=== PATIENT | female | born 1990 | race Caucasian/White ===

== ENCOUNTER → 2016-11-17 | Outpatient (REF) ==
[~2016-11-17] MED LIST: IRON1 CHI; NO HOME MEDICATIONS; NUVARING1 ICR VG; PRENATAL1 TA1 PO
== END ==
LOC: WSOH 14:23
DX: Z00.00 Encounter for general adult medical examination without abnormal findings (principal)

== ENCOUNTER → 2016-11-22 | Outpatient (REF) | LOC: WSOH 12:02 | DX: Z02.89 Encounter for other administrative examinations (principal) ==

== ENCOUNTER → 2016-12-18 | Outpatient (REF) | LOC: WSOH 12:52 | DX: Z23 Encounter for immunization (principal) ==

== ENCOUNTER 2017-06-05 11:23 | Emergency (ER) | payer BC ==
[~2017-06-05] VITALS: Ht 152.4 cm; Wt 66.8 kg
[2017-06-05 11:41] VITALS: TEMP 98.9
[2017-06-05 12:12] LABS: BASO % 0.2 % (0.0-2.0); EOS # 0.2 (0.0-0.7); EOS % 2.2 % (0-4.0); GRAN # 6.3 (1.4-6.5); GRAN % 63.9 % (42.2-75.2); HEMATOCRIT 39.1 % (37.0-47.0); HEMOGLOBIN 13.6 g/dl (12.5-16.0); LYMPH # 2.6 (1.2-3.4); LYMPH % 26.8 % (20.0-51.0); MEAN CELL VOLUME 90 fl (80.0-100.0); MEAN CORPUSCULAR HEMOGLOBIN 31 pg (27.0-31.0); MEAN CORPUSCULAR HGB CONC 35 g/dl (33.0-37.0); MEAN PLATELET VOLUME 9.1 fl (7.4-10.4); MONO # 0.7 (0.1-0.6); MONO % 6.7 % (1.7-9.3); PLATELET COUNT 264 K/mm3 (130-400); RED BLOOD COUNT 4.36 M/mm3 (4.10-5.30); REDCELL DISTRIBUTION WIDTH-CV 12.2 % (11.5-14.5)
[2017-06-05 12:21] LABS: ALBUMIN 4.5 gm/dL (3.5-5.0); BILIRUBIN,TOTAL 0.4 mg/dL (0.0-1.0); CREATININE, serum 0.6 mg/dL (0.52-1.25); POTASSIUM 4.1 mmol/L (3.4-5.0)
[2017-06-05] MEDS ORDERED: ZYRTEC5 MG PO (12:24)
[2017-06-05] MEDS ORDERED: PRENATAL 191 CTB PO (12:24)
[2017-06-05 14:37] LABS: COLLECTION METHOD CLEAN CATCH
[2017-06-05 15:01] LABS: MUCOUS Present /lpf; PH 5 (5-8); SQUAMOUS EPITHELIAL None Seen /hpf; URINE APPEARANCE Clear; URINE BACTERIA None Seen /hpf; URINE BILIRUBIN Negative (NEGATIVE); URINE BLOOD Negative (NEGATIVE); URINE COLOR Yellow; URINE GLUCOSE Negative (NEGATIVE); URINE KETONE 1+ (NEGATIVE); URINE LEUKOCYTE ESTERASE Negative (NEGATIVE); URINE NITRATE Negative (NEGATIVE); URINE PROTEIN(semi-quant) Negative (NEGATIVE); URINE RBC None Seen /hpf; URINE UROBILINOGEN Negative (NEGATIVE)
[2017-06-05 15:46] VITALS: BP 117/72; PULSE 91
== END 2017-06-05 15:42 | disposition home or self-care (01) ==
LOC: COL.ER 11:23
PROVIDERS: Nurse Practitioner
DX: O26.891 Other specified pregnancy related conditions, first trimester (principal); R55 Syncope and collapse; Z3A.12 12 weeks gestation of pregnancy
CPT/HCPCS: J7030

== ENCOUNTER 2017-12-14 06:58 | Inpatient (IN) | payer BC ==
[2017-12-14] VITALS (60 sets, daily range): BP systolic 117–168; BP diastolic 62–105; PULSE 78–127; TEMP 97.7–98.7
[~2017-12-14] VITALS: Ht 152.4 cm; Wt 76.7 kg
[~2017-12-14 06:58] MED LIST changes: +PRENATAL 191 CTB PO; +ZYRTEC5 MG PO
[2017-12-14] MEDS ORDERED: SLOW-MAG 6464 MG/TAB PO (07:44)
[2017-12-14 08:04] LABS: BASO % 0.1 % (0.0-2.0); EOS # 0.3 (0.0-0.7); GRAN # 4.9 (1.4-6.5); GRAN % 57.2 % (42.2-75.2); HEMOGLOBIN 10.7 g/dl (12.5-16.0); LYMPH # 2.3 (1.2-3.4); LYMPH % 26.4 % (20.0-51.0); MEAN CELL VOLUME 92 fl (80.0-100.0); MEAN CORPUSCULAR HEMOGLOBIN 31 pg (27.0-31.0); MEAN CORPUSCULAR HGB CONC 34 g/dl (33.0-37.0); MEAN PLATELET VOLUME 9.4 fl (7.4-10.4); MONO % 11.6 % (1.7-9.3); PLATELET COUNT 159 K/mm3 (130-400); RED BLOOD COUNT 3.41 M/mm3 (4.10-5.30); REDCELL DISTRIBUTION WIDTH-CV 14.2 % (11.5-14.5)
[2017-12-14 08:05] LABS: HEMATOCRIT 31.3 % (37.0-47.0)
[2017-12-14 09:49] LABS: COLLECTION METHOD CLEAN CATCH
[2017-12-14 09:57] LABS: PH 7 (5-8); URINE APPEARANCE Clear; URINE BACTERIA Rare /hpf; URINE BILIRUBIN Negative (NEGATIVE); URINE BLOOD Negative (NEGATIVE); URINE COLOR Straw; URINE GLUCOSE Negative (NEGATIVE); URINE KETONE Negative (NEGATIVE); URINE LEUKOCYTE ESTERASE 1+ (NEGATIVE); URINE NITRATE Negative (NEGATIVE); URINE PROTEIN(semi-quant) Negative (NEGATIVE); URINE RBC 0-2 /hpf; URINE UROBILINOGEN Negative (NEGATIVE)
[2017-12-14 10:07] LABS: BILIRUBIN,TOTAL 0.4 mg/dL (0.0-1.0); CALCIUM 9.1 mg/dL (8.4-10.2); CREATININE, serum 0.54 mg/dL (0.52-1.25); TOTAL PROTEIN 5.8 gm/dL (6.4-8.2)
[2017-12-14 10:08] LABS: POTASSIUM 2.9 mmol/L (3.4-5.0)
[2017-12-15 00:30] VITALS: BP 128/76; PULSE 105; TEMP 98.5
[2017-12-15 04:15] VITALS: BP 147/90; PULSE 114
[2017-12-15 09:06] VITALS: BP 125/81; PULSE 93; TEMP 98.3
[2017-12-15] MEDS ORDERED: IBU600 MG PO (09:33)
[2017-12-15 16:12] VITALS: BP 140/89; PULSE 87; TEMP 98.3
[2017-12-15 20:20] VITALS: BP 142/95; PULSE 95; TEMP 98.5
[2017-12-16 10:00] VITALS: BP 130/90; PULSE 88; TEMP 98.7
[2017-12-16 10:54] LABS: ALBUMIN 2.7 gm/dL (3.5-5.0); BILIRUBIN,TOTAL 0.3 mg/dL (0.0-1.0); CALCIUM 8.1 mg/dL (8.4-10.2); CREATININE, serum 0.59 mg/dL (0.52-1.25); TOTAL PROTEIN 5.3 gm/dL (6.4-8.2)
== END 2017-12-16 12:40 | disposition home or self-care (01) | DRG 775 ==
LOC: LDR 06:58 → OB 12-15 00:40 → EDSTATUS 12-17 07:35 → LDRO 12-17 12:15
PROVIDERS: Student in an Organized Health Care Education/Training Program
PROC: 10E0XZZ Delivery of Products of Conception, External Approach (ICD-10-PCS; principal; 2017-12-14)
PROC: 3E033VJ Introduction of Other Hormone into Peripheral Vein, Percutaneous Approach (ICD-10-PCS; 2017-12-14)
DX: O75.89 Other specified complications of labor and delivery (principal); O13.4 Gestational [pregnancy-induced] hypertension without significant proteinuria, complicating childbirth; E87.6 Hypokalemia; O26.893 Other specified pregnancy related conditions, third trimester; O99.02 Anemia complicating childbirth; Z37.0 Single live birth; Z3A.39 39 weeks gestation of pregnancy
CPT/HCPCS: J0360; J2590; J3480; J7120

== ENCOUNTER → 2018-09-27 | Outpatient (CLI) | payer BC ==
[~2018-09-27] MED LIST changes: +IBU600 MG PO; +SLOW-MAG 6464 MG/TAB PO
== END ==
LOC: COL.RAD 06:44
DX: R10.11 Right upper quadrant pain (principal)
CPT/HCPCS: A9537